=== PATIENT | female | born 1955 | race Caucasian/White ===

== ENCOUNTER → 2017-11-21 | Outpatient (CLI) | payer BC ==
--- NOTE | 2017-11-21 14:50 | MM ---
Reason for exam: additional evaluation requested from prior study. Last mammogram was performed 1 year and 1 month ago. History: Patient is postmenopausal. Physical Findings: Nurse did not find any significant physical abnormalities on exam. MG Diagnostic Mammo w CAD ILA Bilateral CC and MLO view(s) were taken. Prior study comparison: October 29, 2016, left breast MG diagnostic mammo LT w CAD. April 27, 2016, left breast MG work up mamm w CAD LT. There are scattered fibroglandular densities. There is a stable mass upper inner quadrant on the left at middle depth back to 2016. No suspicious abnormality. These results were verbally communicated with the patient and result sheet given to the patient on 11/21/17. ASSESSMENT: Benign, BI-RAD 2 RECOMMENDATION: Routine screening mammogram of both breasts in 1 year.
== END | disposition home or self-care (01) ==
LOC: RADMAMWWP 14:03
PROVIDERS: ATTEND Family Medicine
DX: N63.0 Unspecified lump in unspecified breast (principal)
CPT/HCPCS: 77066

== ENCOUNTER → 2017-11-28 | Outpatient (CLI) | payer BC ==
--- NOTE | 2017-11-28 10:16 | CTL ---
EXAMINATION TYPE: CT Low Dose Lung DATE OF EXAM ORDERED: 11/28/2017 COMPARISON: None HISTORY: . Low Dose CT Lung Screening CT DLP: [address] CTDI: 2.18 mGy IV CONTRAST USED: None. SCREENING VISIT: First visit COMPARISON: None. TECHNIQUE: Low dose computed tomography scan was performed through the chest at 1 millimeter thick se ctions and reconstructed images in the coronal plane at [address] DIAGNOSTIC QUALITY: Satisfactory FINDINGS: LUNG NODULES: Not present. There is biapical scarring noted. Linear scarring noted in the region of the lingula, left lower lobe as well as the right middle lobe. Subpleural postinflammatory change rig ht upper lobe. No distinct or discrete nodule identified at this time. LUNGS: COPD: Severity: Mild Fibrosis: Severity: Mild Lymph nodes: None Other findings: None RIGHT PLEURAL SPACE: Effusion: None Calcification: None Thickening: None Pneumothorax: None LEFT PLEURAL SPACE: Effusion: None Calcification: None Thickening: None Pneumothorax: None HEART: Heart Size: Mildly enlarged Coronary calcification: Mild Pericardial effusion: None OTHER FINDINGS: Upper abdomen: No significant abnormality Bony thorax: Degenerative changes Supraclavicular region: No significant abnormalityOther: No significant abnormalityI IMPRESSION: Benign FOLLOW UP CT CHEST RECOMMENDATION: Follow-up screening in one year CT LUNG RAD: LUNG RAD CATEGORY 1
== END | disposition home or self-care (01) ==
LOC: RADCTMAIN 09:46
PROVIDERS: ATTEND Family Medicine
DX: Z12.2 Encounter for screening for malignant neoplasm of respiratory organs (principal); Z87.891 Personal history of nicotine dependence

== ENCOUNTER 2018-01-03 07:28 | Day surgery (SDC) | payer BC ==
[2017-12-29 15:40] VITALS: BMI 22.6
[~2018-01-03 07:28] MED LIST: LACTATED RINGERS 1,000 ML IV SCH
[2018-01-03 08:10] VITALS: RESP 18; TEMP 97.8
[2018-01-03] MEDS ORDERED: LIDOCAINE 1% 20 ML VIAL (10MG/ML) FOR IV START INTRADERMA ONE (08:10)
[2018-01-03] MEDS ORDERED: ONDANSETRON 4 MG/2 ML VIAL IVP ONE (08:11)
[2018-01-03] MEDS ORDERED: LIDOCAINE 1% INJ 10MG/ML (20 ML MDV) ONE (08:20)
[2018-01-03] MEDS ORDERED: PROPOFOL 10 MG/ML 20 ML VIAL IV ONE (08:20)
--- NOTE | 2018-01-03 09:08 | P.PCN ---
Date of Procedure: 01/03/18 Preoperative Diagnosis: Last colonoscopy approximately 10 years ago Postoperative Diagnosis: Sigmoid diverticuli, internal hemorrhoids, tortuous sigmoid colon Procedure(s) Performed: Colonoscopy Anesthesia: MAC Surgeon: Christen Malave Estimated Blood Loss (ml): 0 IV fluids (ml): 800 Pathology: none sent Condition: stable Disposition: PACU Indications for Procedure: Last scope 10 years ago Operative Findings: Extensive sigmoid diverticuli, internal hemorrhoids, tortuous sigmoid colon Description of Procedure: Patient was taken to the endoscopy suite and following sedation rectal exam was performed. Patient was noted to have adequate sphincter tone although slightly decreased and no masses. The colonoscope was passed through the anus into the rectum. It was passed up into the sigmoid colon were diverticuli were noted in the sigmoid colon was quite tortuous. However with careful manipulation we were able to pass the scope through the sigmoid colon up to the splenic flexure. Was passed into the transverse colon hepatic flexure right colon down to the area of the cecum. Circumferential observation of the mucosa did not reveal any lesions of concern in the cecum or right colon. No lesions of concern in the transverse colon. No lesions of concern in the left colon or sigmoid colon although there were multiple diverticuli in the sigmoid colon. Scope was brought down into the rectum and it was unable to be retroflexed well , although internal hemorrhoids were identified. An anoscopic exam was then performed and no lesions of concern were noted in the rectum. Impression/plan: 1. Extensive sigmoid diverticuli 2. Internal hemorrhoids Plan: 1. Repeat scope 7-10 years 2. Diverticular diet 3. Conservative management of hemorrhoids
--- NOTE | 2018-01-03 09:10 | P.DS ---
Providers Attending physician: Christen Malave Primary care physician: Romario Thorpe Plan - Discharge Summary New Discharge Prescriptions: No Action No Known Home Medications [No Known Home Medications] Discharge Medication List No Known Home Medications [No Known Home Medications] 12/29/17 [History] Activity/Diet/Wound Care/Special Instructions: Diverticular diet do not drive today Discharge Disposition: HOME SELF-CARE
[2018-01-03 09:31] VITALS: BP 117/59; PULSE 82
--- NOTE | 2018-01-05 06:35 | CDI ---
Date: 01/03/18 CDS/[employer] Name: Trisha Man Phone: If any questions, call Helene Wong Mobile Phone Salesperson at [phone] Patient Name: Rox Shepherd Admit Date: 01/03/18 Discharge Date: 01/03/18 ATTENTION: The [facility] Coding Staff appreciate your assistance in clarifying documentation. Please respond to the clarification below the line at the bottom and electronically sign. The [facility] Coding staff will review the response and follow-up if needed. Please note: Queries are made part of the Legal Health Record. If you have any questions, please contact the Mobile Phone Salesperson. Dear Dr. Malave, Please provide clarification of the Chief complaint on the H&P. Please clarify what is written on the Chief Complaint line on the H&P Thank you for your kind consideration, MTDD
== END 2018-01-03 09:51 | disposition home or self-care (01) ==
LOC: ORWHC2ENDO 07:28
PROVIDERS: ATTEND Surgery
DX: K57.30 Diverticulosis of large intestine without perforation or abscess without bleeding (principal); K64.8 Other hemorrhoids; Q43.8 Other specified congenital malformations of intestine; Z79.899 Other long term (current) drug therapy; E78.5 Hyperlipidemia, unspecified; J44.9 Chronic obstructive pulmonary disease, unspecified; F17.210 Nicotine dependence, cigarettes, uncomplicated
CPT/HCPCS: J2405; J2001; J2704; G0121

== ENCOUNTER → 2018-12-22 | Outpatient (CLI) | payer BC ==
--- NOTE | 2018-12-22 15:36 | CTL ---
EXAMINATION TYPE: CT Low Dose Lung DATE OF EXAM ORDERED: 12/22/2018 HISTORY: Personal history of tobacco abuse. Lung cancer screening CT DLP: [address] CTDI: 1.8 mGy Automated exposure control for dose reduction was used. SCREENING VISIT: Second COMPARISON: 11/28/2017 TECHNIQUE: Low dose computed tomography scan was performed through the chest at 1 mm thick sections a nd reconstructed images in the coronal plane at [address] DIAGNOSTIC QUALITY: Satisfactory FINDINGS: LUNG NODULES: Present, detailed below: There is a 3 mm solid pulmonary nodule within the posterior lateral aspect of the right lung apex in a subpleural location on series 4 image 78, retrospectively unchanged from the prior. There is a 2 mm subpleural pulmonary nodule in the lateral left upper lobe on series 4 image 98, also retrospectively unchanged from the prior. This is solid in nature. LUNGS: COPD: Severity: Moderate Fibrosis: Severity: None Lymph nodes: No suspicious adenopathy Other findings: Biapical pleural parenchymal scarring is somewhat nodular. This is similar to the shira or 11/28/2017. Bandlike parenchyma scarring is seen within the right middle lobe. Endobronchial mucous plugging is seen in a tubular morphology within the right middle lobe from serie s 4 image 154 through image 164 medially. There is mild cylindrical bronchiectasis of the medial righ t middle lobe, likely postinfectious. Lingular atelectasis and minimal bibasilar subsegmental atelectasis are also noted. Bandlike pleural parenchymal scarring is seen of the medial left lower lobe. RIGHT PLEURAL SPACE: Effusion: None Calcification: None Thickening: None Pneumothorax: None LEFT PLEURAL SPACE: Effusion: None Calcification: None Thickening: None Pneumothorax: None HEART: Heart Size: Mildly enlarged Coronary calcification: Mild Pericardial effusion: None OTHER FINDINGS: Upper abdomen: No significant abnormality appreciated in the limited unenhanced images of the upper a bdomen. Bony thorax: Mild multilevel degenerative changes of the spine are seen. Supraclavicular region: Thyroid gland is heterogenous containing a 7 mm hypoattenuated right thyroid nodule. This is an incidental finding as it is less than 1 cm. IMPRESSION: Lung RADS 2-bilateral subcentimeter pulmonary nodules (sub-3 mm) superimposed upon modera te centrilobular emphysema. Continued surveillance with annual low dose CT thorax is recommended. FOLLOW UP CT CHEST RECOMMENDATION: Low-dose CT thorax in [address] LUNG RAD: Lung-Rad 2 Benign Appearance or Behavior
== END | disposition home or self-care (01) ==
LOC: RADCTMAIN 14:41
PROVIDERS: ATTEND Family Medicine
DX: Z12.2 Encounter for screening for malignant neoplasm of respiratory organs (principal); J43.2 Centrilobular emphysema; R91.8 Other nonspecific abnormal finding of lung field; Z87.891 Personal history of nicotine dependence

== ENCOUNTER → 2020-06-19 | Outpatient (CLI) | payer BC ==
--- NOTE | 2020-06-19 12:10 | XR ---
EXAMINATION TYPE: XR cervical spine comp DATE OF EXAM: 06/19/2020 COMPARISON: NONE HISTORY: Pain TECHNIQUE: Four views are submitted. FINDINGS: The odontoid is intact. There are no compression deformities. The prevertebral soft tissue structur es are within normal limits. There is severe degenerative disc disease C6-C7 with hypertrophic spurr ing there is multilevel facet arthropathy. There is multilevel foraminal encroachment most marked at C6-7. Facet arthropathy contributes to foraminal encroachment at C3-4, C4-5 and C5-6. IMPRESSION: 1. Severe degenerative disc disease C6-C7. There is bilateral significant foraminal encroachment. Rec ommend MRI. 2. Severe facet arthropathy.
--- NOTE | 2020-06-19 12:13 | XR ---
EXAMINATION TYPE: XR chest 2V DATE OF EXAM: 06/19/2020 COMPARISON: NONE TECHNIQUE: PA and lateral views submitted. HISTORY: Pain FINDINGS: The lungs are clear and there is no pneumothorax, pleural effusion, or focal pneumonia. Atheroscler otic change of the aorta. Biapical pleural thickening. No overt failure. Heart size normal. IMPRESSION: 1. No acute process.
--- NOTE | 2020-06-19 12:16 | XR ---
EXAMINATION TYPE: XR ribs bilateral DATE OF EXAM: 06/19/2020 COMPARISON: NONE HISTORY: Pain TECHNIQUE: 8 views of the ribs were obtained bilaterally FINDINGS: Rib cage is grossly intact. Chronic deformity involving the anterior margin of the left thi rd rib noted. No definite acute displaced rib fracture. IMPRESSION: No evidence of acute displaced rib fracture
== END | disposition home or self-care (01) ==
LOC: RADXRMAIN 11:08
PROVIDERS: ATTEND Family Medicine
DX: M50.323 Other cervical disc degeneration at C6-C7 level (principal); M47.812 Spondylosis without myelopathy or radiculopathy, cervical region; M54.6 Pain in thoracic spine
CPT/HCPCS: 71046; 71110; 72050

== ENCOUNTER → 2020-07-11 | Outpatient (CLI) | payer BC | END | disposition home or self-care (01) | LOC: RADMRIMAIN 14:11 | PROVIDERS: ATTEND Nurse Practitioner Family | DX: Z53.9 Procedure and treatment not carried out, unspecified reason (principal) ==

== ENCOUNTER → 2020-09-02 | Outpatient (CLI) | payer BC ==
--- NOTE | 2020-09-03 22:20 | BD ---
EXAMINATION TYPE: Axial Bone Density DATE OF EXAM: 09/02/2020 COMPARISON: NONE CLINICAL HISTORY: Postmenopausal female. Height: 5 FT 4 IN Weight: 131 FRAX RISK QUESTIONS: Alcohol (3 or more units per day): NO Family History (Parent hip fracture): NO Glucocorticoids (More than 3mos): NO (Ex: prednisone, prednisolone, methylprednisolone, dexamethasone, and hydrocortisone). History of Fracture in Adulthood: YES Secondary Osteoporosis: 1. Type 1 Diabetes: NO 2. Hyperthyroidism: NO 3. Menopause before 45: PART HYST AGE 33 4. Malnutrition: NO 5. Chronic liver disease: NO Rheumatoid Arthritis: NO Current Tobacco Use: YES RISK FACTORS HISTORY OF: History of Wrist Fracture: YES When: 2008 Family History of Osteoporosis: YES Active: YES Diet low in dairy products/other sources of calcium: NO Postmenopausal woman: PART HYST AGE 33 SYMPTOMS AGE 44 Lost more than 2 inches in height since high school: YES MEDICATIONS: Additional Medications: NONE Additional History: EXAM MEASUREMENTS: Bone mineral densitometry was performed using the [employer] System. Bone mineral density as measured about the Lumbar spine is: ----- L1-L4(G/cm2): 1.100 T Score Values are as follows: ----- L2: -2.0 ----- L3: -0.4 ----- L4: 0.3 ----- L1-L4: -0.7 BASELINE Bone mineral density about the R hip (g/cm2): 0.813 Bone mineral density about the L hip (g/cm2): 0.801 T Score values are as follows: -----R Neck: -1.6 -----L Neck: -1.7 -----R Total: -1.5 -----L Total: -1.8 BASELINE IMPRESSION: Osteopenia (T Score between -2.5 and -1). There is slightly increased risk of fracture and the patient may be considered for treatment. Re-Screen 2-5 years. NOTE: T-SCORE=SD OF THE YOUNG ADULT MEAN.
--- NOTE | 2020-09-08 11:15 | MM ---
Reason for exam: screening (asymptomatic). Last mammogram was performed 2 years and 9 months ago. History: Patient is postmenopausal. Physical Findings: A clinical breast exam by your physician is recommended on an annual basis and results should be correlated with mammographic findings. MG Screening Mammo w CAD Bilateral CC and MLO view(s) were taken. Prior study comparison: November 21, 2017, bilateral MG diagnostic mammo w CAD ILA. October 29, 2016, left breast MG diagnostic mammo LT w CAD. There are scattered fibroglandular densities. Benign appearing bilateral calcifications. No significant changes when compared with prior studies. ASSESSMENT: Benign, BI-RAD 2 RECOMMENDATION: Routine screening mammogram of both breasts in 1 year.
== END | disposition home or self-care (01) ==
LOC: RADMAMWWP 14:46
PROVIDERS: ATTEND Family Medicine
DX: Z12.31 Encounter for screening mammogram for malignant neoplasm of breast (principal); M85.80 Other specified disorders of bone density and structure, unspecified site; Z78.0 Asymptomatic menopausal state
CPT/HCPCS: 77067; 77080

== ENCOUNTER → 2023-02-28 | Outpatient (CLI) | payer BC ==
--- NOTE | 2023-02-28 11:37 | FL ---
Modified barium swallow. Consistencies administered: Thin, pudding, and cracker consistencies. No nasopharyngeal or tracheal aspiration. No laryngeal penetration. There is some mild anterior osteo phytosis of the cervical spine. Fluoro time: 41 seconds No images were sent to PACS. Please see speech pathology report.
== END | disposition home or self-care (01) ==
LOC: RADFLMAIN 10:59
PROVIDERS: ATTEND Otolaryngology
DX: R13.10 Dysphagia, unspecified (principal)
CPT/HCPCS: 74230

== ENCOUNTER → 2024-06-11 | Outpatient (CLI) | payer BC ==
--- NOTE | 2024-06-11 16:16 | XR ---
EXAMINATION TYPE: XR lumbosacral spine min 4V DATE OF EXAM: 06/11/2024 3:56 PM CLINICAL INDICATION:Female, 68 years old with history of M54.50 LOW BACK PAIN; [facility] COMPARISON: None TECHNIQUE: XR lumbosacral spine min 4V - Frontal, lateral , bilateral oblique and coned in L5-S1 late ral views of the spine. FINDINGS: No evidence of any acute osseous pathology. No evidence of loss of vertebral body height i s seen. There is normal alignment of the lumbar vertebral bodies. Mild scattered disc space narrowing . Multilevel marginal osteophyte formation throughout the visualized spine. There is facet joint arth ropathy throughout the spine. Poor visualization of the neural foramen due to patient positioning. At herosclerosis of the arterial vasculature. IMPRESSION: 1. No acute fracture. 2. Moderate multilevel disc degeneration.
--- NOTE | 2024-06-12 09:37 | MM ---
Reason for Exam: Screening (asymptomatic). Last mammogram was performed 1 year(s) and 4 month(s) ago. Patient History: Menarche at age 14. First Full-Term at age 22. Right ovary removed at age 34. Hysterectomy at age 34. Postmenopausal. Risk Values: Latonya 5 year model risk: 1.4%. NCI Lifetime model risk: 4.3%. Prior Study Comparison: 11/21/2017 Bilateral Diagnostic Mammogram, [facility]. 09/02/2020 Bilateral Screening Mammogram, [facility]. 01/25/2023 Bilateral MG 3D screening mammo w/cad, [facility]. Tissue Density: There are scattered areas of fibroglandular density. Findings: Analyzed By CAD. There is no suspicious group of microcalcifications or new suspicious mass in either breast. Overall Assessment: Benign, BI-RAD 2 Management: Screening Mammogram of both breasts in 1 year. . Patient should continue monthly self-breast exams. A clinical breast exam by your physician is recommended on an annual basis. This exam should not preclude additional follow-up of suspicious palpable abnormalities. Note on Latonya scores and lifetime risk: 1. A Latonya score greater than 3% is considered moderate risk. If this is the case, consider specialist referral to assess eligibility for a risk reducing agent. 2. If overall lifetime risk for the development of breast cancer is 20% or higher, the patient may qualify for future screening with alternating mammogram and breast MRI. Electronically signed and approved by: Mele Veronica M.D. Radiologis
--- NOTE | 2024-06-12 12:31 | BD ---
EXAMINATION TYPE: Axial Bone Density DATE OF EXAM: 06/11/2024 CLINICAL HISTORY: 68 years old Female. ICD-10 CODE: Z78.0 MENOPAUSAL Height: 64 Weight: 134.8 FRAX RISK QUESTIONS: Alcohol (3 or more units per day): no Family History (Parent hip fracture): no Glucocorticoids (More than 3mos): no (Ex: prednisone, prednisolone, methylprednisolone, dexamethasone, and hydrocortisone). History of Fracture in Adulthood: yes Secondary Osteoporosis: 1. Type 1 Diabetes: no 2. Hyperthyroidism: no 3. Menopause before 45: yes 4. Malnutrition: no 5. Chronic liver disease: no Rheumatoid Arthritis: no Current Tobacco Use: yes RISK FACTORS HISTORY OF: Hip Fracture (Right/Left): wrist When: 2008 Surgery to Spine/Hip(right/left)/Wrist (right/left): no EXAM MEASUREMENTS: Bone mineral densitometry was performed using the [employer] System. Bone mineral density as measured about the Lumbar spine is: ----- L1-L4(G/cm2): 1.115 T Score Values are as follows: ----- L1: -1.2 ----- L2: -1.9 ----- L3: -0.3 ----- L4: 0.6 ----- L1-L4: -0.5 Z Score Values are as follows: ----- L1: 0.6 ----- L2: -0.1 ----- L3: 1.5 ----- L4: 2.4 ----- L1-L4: 1.2 Bone mineral density has: increased 1.4 % since study of: 08.23.2020 Bone mineral density about the R hip (g/cm2): 0.803 Bone mineral density about the L hip (g/cm2): 0.778 T Score values are as follows: -----R Neck: -1.5 -----L Neck: -1.6 -----R Total: -1.6 -----L Total: -1.8 Z Score values are as follows: -----R Neck: 0.2 -----L Neck: 0.2 -----R Total: -0.1 -----L Total: -0.3 Bone mineral density has: decreased -1.5 % since study of: 08.23.2020 FRAX%s: The graph provided illustrates a 15.9% chance for a major osteoporotic fx and a 3.9% chance f or the hips probability for fx in 10 years time. IMPRESSION: Osteopenia (T Score between -2.5 and -1). There is slightly increased risk of fracture and the patient may be considered for treatment. Re-Screen 2-5 years. NOTE: T-SCORE=SD OF THE YOUNG ADULT MEAN.
== END | disposition home or self-care (01) ==
LOC: RADMAMWWP 14:54
PROVIDERS: ATTEND Family Medicine
DX: Z12.31 Encounter for screening mammogram for malignant neoplasm of breast (principal); M54.50 Low back pain, unspecified; R92.323 Mammographic fibroglandular density, bilateral breasts; Z13.820 Encounter for screening for osteoporosis; M85.89 Other specified disorders of bone density and structure, multiple sites; Z78.0 Asymptomatic menopausal state; R10.13 Epigastric pain; Z87.891 Personal history of nicotine dependence
CPT/HCPCS: 72110; 77063; 77067; 77080

== ENCOUNTER → 2024-06-15 | Outpatient (CLI) | payer BC ==
--- NOTE | 2024-06-15 12:16 | US ---
EXAMINATION TYPE: US abdomen complete DATE OF EXAM: 06/15/2024 COMPARISON: NONE CLINICAL INDICATION: Female, 68 years old with history of R10.13 Epigastric pain; Patient states righ t flank pain x 1 year TECHNIQUE: Multiple sonographic images of the abdomen are obtained. FINDINGS: EXAM MEASUREMENTS: Liver Length: 11.6 cm Gallbladder Wall: 0.17 cm CBD: 0.48 cm Spleen: 7.5 x 7.4 x 3.8 cm Right Kidney: 9.9 x 4.5 x 4.5 cm Left Kidney: 10.4 x 4.4 x 5.0 cm TUBE INSPECTOR NOTES: Pancreas: wnl Liver: wnl Gallbladder: No stones seen Evidence for sonographic Goldberg's sign: No CBD: wnl Spleen: wnl Right Kidney: wnl Left Kidney: wnl Upper IVC: wnl Abd Aorta: wnl The liver is homogenous. The intrahepatic portion of the IVC and proximal abdominal aorta are within normal limits. There is no evidence of cholelithiasis. Common bile duct is unremarkable. The visu alized portions of the pancreas are homogenous. The spleen is unremarkable. Kidneys are symmetric a nd free of hydronephrosis. No renal lesions are seen. No shadowing renal calculi identified. IMPRESSION: Unremarkable abdominal ultrasound.
== END | disposition home or self-care (01) ==
LOC: RADUSWWP 06:57
PROVIDERS: ATTEND Family Medicine
DX: R10.13 Epigastric pain (principal)
CPT/HCPCS: 76700

== ENCOUNTER → 2024-06-25 | Outpatient (CLI) | payer BC ==
--- NOTE | 2024-07-18 14:00 | CTL ---
Site ID [facility] Patient Rox Shepherd L ID [id number] Age/Gender: 68Y, F Order # N/A Procedure CT LOW DOSE LUNG CANCER SCREENING Date 06/25/2024 1:21:00 PM EXAMINATION TYPE: CT Low Dose Lung DATE OF EXAM ORDERED: 07/05/2024 HISTORY: Personal history of nicotine dependence. Lung cancer screening CT DLP: 70.[address] CTDI: 2.00 mGy Automated exposure control for dose reduction was used. SCREENING VISIT: Follow-up COMPARISON: CT Low Dose Lung cancer screening 01/25/2023, 12/22/2018 TECHNIQUE: Low dose computed tomography scan was performed through the chest at 1 mm thick sections a nd reconstructed images in multiple planes at 1 mm and [address] DIAGNOSTIC QUALITY: Satisfactory FINDINGS: Nodules: Several scattered stable pulmonary micronodules identified. Examples include stable right lower lobe 2.8 mm pulmonary nodule (series 6, image 46). Stable left lateral upper lobe 3.9 mm pulmonary nodule (series 4, image 107). Previously measured 3 mm. LUNGS: COPD: Severity: Mild Fibrosis: Severity: None Lymph nodes: None Other findings: Linear atelectasis within the left lower lobe. Biapical pleural-parenchymal scarring. Linear scarring within the right middle lobe. Fat filled right Bochdalek hernia. RIGHT PLEURAL SPACE: Effusion: None Calcification: None Thickening: None Pneumothorax: None LEFT PLEURAL SPACE: Effusion: None Calcification: None Thickening: None Pneumothorax: None HEART: Heart Size: Normal Coronary Calcification: Small Pericardial Effusion: None OTHER FINDINGS: Upper abdomen: None Bony thorax: No acute process. Mild multilevel degenerative disc disease of the thoracic spine. Supraclavicular region: Stable 1.1 cm hypodense right thyroid lobe nodule. Other: Mild atherosclerotic calcification in the aortic arch and its branches. IMPRESSION: 1. Few stable pulmonary nodules measuring less than 4 mm. No new or enlarging pulmonary nodules. 2. Mild COPD changes. CT LUNG RAD AND CT CHEST RECOMMENDATION: Lung-Rad 2 Benign Appearance or Behavior: Continue annual sc reening with LDCT in 12 months. S Modifier (other clinically significant findings): None
== END | disposition home or self-care (01) ==
LOC: RADCTMAIN 13:00
PROVIDERS: ATTEND Family Medicine
DX: Z12.2 Encounter for screening for malignant neoplasm of respiratory organs (principal); F17.210 Nicotine dependence, cigarettes, uncomplicated; J44.9 Chronic obstructive pulmonary disease, unspecified; I70.0 Atherosclerosis of aorta; M51.34 Other intervertebral disc degeneration, thoracic region
CPT/HCPCS: 71271

== ENCOUNTER 2024-09-14 06:40 | Day surgery (SDC) | payer BC ==
[2024-09-11 14:37] VITALS: BMI 22.3
[2024-09-14 07:14] VITALS: RESP 14; TEMP 97.1
[2024-09-14] MEDS: LACTATED RINGERS 1,000 ML IV SCH (07:32)
[2024-09-14] MEDS: IV FLUID CONTINUATION 1,000 ML IV ONE (07:33)
[2024-09-14] MEDS ORDERED: PROPOFOL 10 MG/ML 20 ML VIAL IV ONE (07:44)
--- NOTE | 2024-09-14 08:02 | P.PCN ---
Date of Procedure: 09/14/24 Procedure(s) Performed: BRIEF HISTORY: Patient is a 68-year-old pleasant white female scheduled for an elective colonoscopy as a part of screening for colon cancer. PROCEDURE PERFORMED: Colonoscopy. PREOPERATIVE DIAGNOSIS: Screening for colon cancer. IV sedation per Anesthesia. PROCEDURE: After informed consent was obtained, the patient, was brought into the endoscopy unit. IV sedation was administered by Anesthesia under continuous monitoring. Digital rectal examination was normal. Initially the Olympus CF-160 flexible video colonoscope was then inserted in the rectum, gradually advanced into the cecum without any difficulty. Careful examination was performed as the scope was gradually being withdrawn. Ileocecal valve and the appendiceal orifice were visualized and appeared normal. Prep was excellent. Mucosa of the cecum, ascending colon, transverse colon, descending colon, sigmoid colon, and rectum appeared normal. Diverticulosis retroflexion was performed in the rectum and no lesions were seen. The patient tolerated the procedure well. IMPRESSION: Normal-appearing colon from rectum to cecum with no evidence of colorectal neoplasia Scattered sigmoid diverticulosis. RECOMMENDATIONS: Findings of this examination were discussed with the patient as well as the family.. She was advised to have repeat screening colonoscopy in 10 years.
[2024-09-14 08:08] VITALS: BP 100/59; PULSE 71
== END 2024-09-14 08:44 | disposition home or self-care (01) ==
LOC: ORWHC2ENDO 06:40
PROVIDERS: ATTEND Internal Medicine Gastroenterology
DX: Z12.11 Encounter for screening for malignant neoplasm of colon (principal); K57.30 Diverticulosis of large intestine without perforation or abscess without bleeding; J44.9 Chronic obstructive pulmonary disease, unspecified; F17.200 Nicotine dependence, unspecified, uncomplicated; Z90.710 Acquired absence of both cervix and uterus; Z98.890 Other specified postprocedural states
CPT/HCPCS: 45378; J2704